=== PATIENT | male | born 1985 | race Caucasian/White ===

== ENCOUNTER 2018-06-17 19:37 | Emergency (ER) | payer OTHER ==
[2018-06-17 20:08] VITALS: BP 139/75
[2018-06-17] MEDS ORDERED: Cephalexin CAP* 500 MG PO ONE (20:38)
--- NOTE | 2018-06-17 20:38 | UC ---
Elbow Pain - HPI Summary HPI Summary: Left elbow redness and swelling since yesterday. Much worse today. No fevers. No clear trauma. - History of Current Complaint Chief Complaint: UCUpperExtremity Stated Complaint: LEFT ELBOW SWELLING Time Seen by Provider: 06/17/18 20:25 Hx Obtained From: Patient Onset/Duration: Days - 2, Worse Since - today Severity Initially: Mild Severity Currently: Moderate Pain Intensity: 7 Location Of Pain: Is Discrete @ - left elbow Character: Sharp, Aching Aggravating Factor(s): Movement Associated Signs And Symptoms: Positive: Swelling, Redness, Numbness/Tingling - down the arm into the pinky. Negative: Fever, Weakness - Allergies/Home Medications Allergies/Adverse Reactions: Allergies Allergy/AdvReac Type Severity Reaction Status Date / Time No Known Allergies Allergy Verified 06/17/18 20:09 Home Medications: Home Medications Ibuprofen/Famotidine [Duexis 800-26.6 mg Tablet] 1 each PO DAILY 06/17/18 [ History Confirmed 06/17/18] PMH/Surg Hx/FS Hx/Imm Hx Previously Healthy: Yes - Surgical History Surgical History: None - Family History Known Family History: Positive: Cardiac Disease, Hypertension, Diabetes - Social History Occupation: Employed Full-time Lives: With Family Alcohol Use: Occasionally Substance Use Type: None Smoking Status (MU): Never Smoked Tobacco Review of Systems Skin: Other - redness over the left elbow Musculoskeletal: Arthralgia - left elbow Is Patient Immunocompromised?: No All Other Systems Reviewed And Are Negative: Yes Physical Exam Triage Information Reviewed: Yes Appearance: Well-Appearing, No Pain Distress, Well-Nourished Vital Signs: Initial Vital Signs Temp 99 F 06/17/18 20:05 Pulse 86 06/17/18 20:05 Resp 16 06/17/18 20:05 BP 139/75 06/17/18 20:05 Pulse Ox 100 06/17/18 20:05 Vital Signs Reviewed: Yes Eyes: Positive: Conjunctiva Clear Neck exam: Normal Respiratory Exam: Normal Cardiovascular Exam: Normal Musculoskeletal Exam: Normal Neurological Exam: Normal Psychological Exam: Normal Skin: Positive: Other - Erythema with swelling over the olecranon process left elbow. Elbow Pain Course/Dx - Differential Dx/Diagnosis Differential Diagnosis/HQI/PQRI: Abrasion, Bursitis, Cellulitis, Tendonitis Provider Diagnoses: Cellulitis left elbow Discharge - Sign-Out/Discharge Documenting (check all that apply): Patient Departure - Discharge Plan Condition: Stable Disposition: HOME Prescriptions: Cephalexin CAP* [Keflex 500 CAP*] 500 mg PO QID #[id number] cap Patient Education Materials: Cellulitis (ED), Cephalexin (By mouth) Referrals: Dmitry Walsh MD [Primary Care Provider] - - Billing Disposition and Condition Condition: STABLE Disposition: Home
== END 2018-06-17 20:52 | disposition home or self-care (01) ==
LOC: UCCORT 19:37
DX: L03.114 Cellulitis of left upper limb (principal)
CPT/HCPCS: 99212; A9270-GY; G0463